=== PATIENT | male | born 1980 | race Caucasian/White ===

== ENCOUNTER 2016-12-18 09:18 | Emergency (ER) | payer OTHER ==
[2016-12-18 09:44] VITALS: BP 154/99; PULSE 78; RESP 16; TEMP 98.4; O2SAT 93
--- NOTE | 2016-12-18 10:11 | UCPHY ---
H & P Time Seen by Provider: 12/18/16 09:57 Patient Type: New HPI/ROS: This patient complains of a one-month history of cold symptoms associated with sinus headache primarily in the frontal sinus more than maxillary sinus. He also has generalized headache that is moderate worsens with cough. He has mild nasal congestion for the entire times well. Darker discharge over the past few days. Pulmonary: Constitutional, no significant fatigue. Neuro: No confusion. No numbness tingling or focal weakness. HEENT: Bilateral ear pressure. No significant sore throat. Pulmonary: No respiratory distress. No hemoptysis. 7 point ROS is otherwise negative Smoking Status: Current every day smoker Physical Exam: Physical Exam Vital signs are normal. General: No acute distress HEENT: Nose: Swollen nasal mucosa with yellow discharge. No sinus tenderness to percussion in the right frontal more than maxillary sinus. Ears: External canals and tympanic membranes are clear with no erythema or abnormal findings bilaterally. Oropharynx: No erythema or exudates. No dysphonia. No drooling or stridor. Eyes: Pupils equal and react to light. Extraocular motions are intact. Lungs: Clear to auscultation bilaterally with no rales, rhonchi or wheeze. No respiratory distress. Cardiac: Regular rate and rhythm with no murmur gallop or rub Skin: No rash or pallor. Neuro: Alert with no focal deficits noted. Initial differential diagnosis: Sinusitis, URI with cough, doubt bronchitis Constitutional: Initial Vital Signs Temperature (C) 36.9 C 12/18/16 09:41 Heart Rate 78 12/18/16 09:41 Respiratory Rate 16 12/18/16 09:41 Blood Pressure 154/99 H 12/18/16 09:41 O2 Sat (%) 93 12/18/16 09:41 O2 Delivery Mode Room Air Allergies/Adverse Reactions: Unable to Assess Allergy (Unverified 12/18/16 09:45) Home Medications: Medication Instructions Recorded Albuterol Hfa Anes Only [Proair 2 puffs IH Q4 PRN #1 mdi 12/18/16 Hfa Icu (*)] Amoxicillin Trihydrate 500 mg PO TID 10 Days 12/18/16 [Amoxicillin] Fluticasone Nasal [Flonase Nasal 2 sprays NASAL DAILY #1 mdi 12/18/16 [facility] (RX)] Medical Decision Making ED Course/Re-evaluation: Counseled the patient regarding sinusitis. Clinically, no concerning findings to suggest [employer] infection other complicating factors. Departure - Departure Disposition: Home, Routine, Self-Care Clinical Impression: Cough Acute sinusitis Qualifiers: Sinusitis location: frontal Recurrence: non-recurrent Qualified Code(s): J01.10 - Acute frontal sinusitis, unspecified Condition: Good Instructions: How to Stop Smoking (ED), Sinusitis (ED) Additional Instructions: Diagnosis: 1. Acute sinusitis 2. Cough Plan: Quit smoking Humidifier Albuterol inhaler Zithromax antibiotic Flonase steroid nasal spray Ibuprofen-600 mg per 6 hours Tylenol 1000 mg 4 hours while awake in addition as needed Return for any significant worsening despite the treatment plan. Referrals: NONE *PRIMARY CARE P,. [Primary Care Provider] - As per Instructions Prescriptions: Albuterol Hfa Anes Only [Proair Hfa Icu (*)] 2 puffs IH Q4 PRN #1 mdi PRN Reason: Wheezing Amoxicillin Trihydrate [Amoxicillin] 500 mg PO TID 10 Days Fluticasone Nasal [Flonase Nasal [facility] (RX)] 2 sprays NASAL DAILY #1 mdi - PQRS PQRS Measurement: NA
== END 2016-12-18 10:35 | disposition home or self-care (01) ==
LOC: CED 09:18
DX: J01.10 Acute frontal sinusitis, unspecified (principal); R05 Cough; F17.200 Nicotine dependence, unspecified, uncomplicated
CPT/HCPCS: 99203-PO; G0463-PO

== ENCOUNTER 2018-03-20 15:04 | Emergency (ER) | payer OTHER ==
--- NOTE | 2018-03-20 16:13 | EDPHY ---
H & P Stated Complaint: swelling in legs Time Seen by Provider: 03/20/18 15:36 HPI/ROS: CHIEF COMPLAINT: Swelling in the legs HISTORY OF PRESENT ILLNESS: 38-year-old male reports that about 2 weeks ago he dropped a heavy 40 lb window onto his left foot and lower rios. Initially had pain and swelling which resolved with ice. Over the last week and a half the patient has noticed that the foot and ankle is swollen by the end of the day. He is also noticing some swelling on his right foot which was not injured. Patient also reports swelling on the casts and shins left greater than right. Swelling is better in the mornings but develops pitting edema by the end of the day. He has noticed some mild shortness of breath over the last several days. Denies any chest pain. Patient reports he has not seen a physician in many years. He has no known history of hypertension, high cholesterol, diabetes, kidney problems, or liver injury. Patient is a daily drinker, states he has at least 90 lb overweight, and smokes. REVIEW OF SYSTEMS: Aside from elements discussed in the HPI, a comprehensive 10-point review of systems was reviewed and is negative. Patient initially presented to the [facility] Emergency Department requesting an urgent care referral. He went to [facility] where he had an x-ray obtained of his left foot which was negative for fracture. He was then referred back to the [facility] for further evaluation regarding his leg swelling, especially in light of the left greater than right swelling. PAST MEDICAL HISTORY: Chronic back pain with disc herniations. No history of DVTs or PEs. Family history of coronary artery disease in the 60s. SOCIAL HISTORY: Smoker. Heavy alcohol use. No history of alcohol withdrawal or alcohol withdrawal seizures. VITAL SIGNS Reviewed by me. GENERAL: Overweight, pleasant, no respiratory distress. HEENT: Atraumatic. Eyes: No icterus, no injection. Faint icterus. Mouth: moist mucous membranes. No erythema or lesions. Neck: supple with no adenopathy. LUNGS: Clear to auscultation bilaterally, no wheezes, rhonchi or rales. CARDIAC: Regular rate and rhythm, no rubs, murmurs or gallops. ABDOMEN: Soft, obese, nontender, nondistended, bowel sounds normal. BACK: No CVA tenderness. EXTREMITIES: Healing abrasion on the lower left rios. 2+ pitting edema to the knee on the left. Trace pitting edema on the right. Left ankle and foot are swollen. Her right ankle and foot have trace swelling. Good range of motion. Warm to the touch. Normal dorsalis pedis and posterior tibial pulses. NEURO: Alert and oriented, grossly nonfocal. SKIN: Warm and dry, no rash. PSYCHIATRIC: Normal mentation, no agitation. - Medical/Surgical History Hx Asthma: No Hx Chronic Respiratory Disease: No Hx Diabetes: No Hx Cardiac Disease: No Hx Renal Disease: No Hx Cirrhosis: No Hx Alcoholism: No Hx HIV/AIDS: No Hx Splenectomy or Spleen Trauma: No Other PMH: herniated discs L3 L4 L5, - Social History Smoking Status: Current every day smoker Constitutional: Initial Vital Signs Heart Rate 91 03/20/18 15:25 Respiratory Rate 16 03/20/18 15:25 Blood Pressure 170/108 H 03/20/18 15:25 O2 Sat (%) 92 03/20/18 15:25 O2 Delivery Mode Room Air Allergies/Adverse Reactions: amoxicillin Allergy (Verified 03/20/18 15:31) cefaclor [From Ceclor] Allergy (Verified 03/20/18 15:31) Home Medications: Medication Instructions Recorded Claritin 03/20/18 Medical Decision Making - Diagnostics Imaging Results: CXR: Impression: No evidence for acute cardiopulmonary abnormality. Dictated By: Juanito Varghese MD Ultrasound: Impression: No evidence of deep vein thrombosis. Findings discussed with Yulisa Petty MD 03/20/2018 at 16:47. Dictated By: John Rios MD ED Course/Re-evaluation: 38-year-old male presenting with 2 weeks of progressive lower extremity edema, left greater than right as well as some shortness of breath. Patient had ultrasound obtained which demonstrates no DVT. Due to the acuity in the emergency department the patient's labs were not immediately drawn. I re-examined the patient and discussed the ultrasound findings. At this point he reports he needs to leave the emergency department to attend to a family issue. Point of care labs including troponin and comprehensive metabolic panel were drawn. Patient did have an EKG obtained prior to leaving which demonstrates no acute ischemic changes. We will contact the patient if needed regarding urgent issues from labs. Patient does understand that he is leaving before the workup is complete and that ideally I would be able to discuss with him laboratory findings and correlate that to his physical examination and complaints. Patient's chemistries: Sodium 137, potassium 3.3, total CO2 24, chloride 103, glucose 86, calcium 9.2, BUN 8, creatinine 0.8, alk-phos 93, ALT 70, AST 113, total bili 1.9, albumin 3.7, total protein 7.0. Troponin on point of care testing: Negative. Patient was referred to follow up with the primary care physician. Differential Diagnosis: Differential diagnosis for the patient's primary complaint of leg swelling was considered including but not limited to cellulitis, hypoalbuminemia, congestive heart failure, cor pulmonale, chronic venous stasis and DVT. Departure - Departure Disposition: Home, Routine, Self-Care Condition: Good Instructions: Leg Edema (ED) Additional Instructions: Please call the emergency department at [phone] in the next hour to discuss your labs. Referrals: NONE *PRIMARY CARE P,. [Primary Care Provider] - As per Instructions Jim Barnes DO [Doctor of Osteopathy] - As per Instructions
--- NOTE | 2018-03-20 17:54 | CPEKG ---
Heart Rate: 89 RR Interval: 674 P-R Interval: 144 QRSD Interval: 82 QT Interval: 368 QTC Interval: 448 P [place]: 70 QRS [place]: 55 T Wave [place]: 24 EKG Severity - OTHERWISE NORMAL ECG - EKG Impression: SINUS TACHYCARDIA Electronically Signed By: Jag Edwards 23-Mar-2018 05:55:05
[2018-03-20 17:56] VITALS: BP 177/112
== END 2018-03-20 17:55 | disposition home or self-care (01) ==
LOC: CED 15:04
DX: M79.89 Other specified soft tissue disorders (principal); F17.200 Nicotine dependence, unspecified, uncomplicated
CPT/HCPCS: 71046-PO; 80053-PO; 84484-PO; 93971-PO

== ENCOUNTER 2018-09-07 10:05 | Inpatient (IN) | payer OTHER ==
[2018-09-07] MEDS ORDERED: ONDANSETRON DISINTEGRATING 4 MG TAB PO PRN (10:54)
[2018-09-07] MEDS ORDERED: ONDANSETRON 4 MG/2 ML VIAL IVP PRN (10:54)
[2018-09-07] MEDS ORDERED: NS 500 ML IV PRN (12:04)
[2018-09-07] MEDS ORDERED: FLUMAZENIL 0.5 MG/5 ML MDV IVP PRN (12:04)
[2018-09-07] MEDS ORDERED: MAG HYDROX/AL HYDROX/SIMETH 30 ML UDCUP PO PRN (12:04)
--- NOTE | 2018-09-07 12:11 | PDGENHP ---
History and Physical - Chief Complaint Lower extremity swelling - History of Present Illness Maury Posey is a 38 yo M with a PMHx of HTN, DM, alcohol abuse, tobacco abuse who presents to [facility] for lower extremity swelling. He reports that he has had lower extremity swelling for some time which has recently worsened. He notes swelling from feet to abdomen. He has been taking 80 mg Lasix intermittently without improvement. He notes some redness and clear drainage from his legs. He notes abdominal distention that has also recently worsened. He denies any abdominal pain or tenderness. He is a daily drinker which started >1 yr ago when his left him. He denies any nausea, vomiting, hematemesis, chest pain , palpitations. He notes a significant weight gain over the past year which he has tried to curb with diet which has not helped. He does report a chronic non- productive cough. He was evaluated for this with a CXR and TTE by his PCP which were reportedly normal. He also had lab work done which showed elevations in AST/ALT, T Bili, Alk Phos with a normal albumin and platelet count. History Information - Allergies/Home Medication List Allergies/Adverse Reactions: azithromycin [From Zithromax Z-Cam] Allergy (Verified 09/07/18 11:37) Bad Stomach Ache cefaclor [From Ceclor] Allergy (Verified 09/07/18 11:37) Unknown Home Medications: Furosemide [Lasix 80 MG (*)] 80 mg PO DAILY 09/07/18 [Last Taken 09/06/18] Herbals/Supplements -Info Only 1 ea PO DAILY 09/07/18 [Last Taken Unknown] [place]-3 Fatty Acids [Fish Oil 1000 mg (*)] 1,000 mg PO DAILY 09/07/18 [Last Taken Unknown] I have personally reviewed and updated: family history, medical history, social history, surgical history - Past Medical History diabetes type 2, hypertension - Surgical History Reports: neurological surgery - Family History Positive for: non-pertinent - Social History Smoking Status: Current every day smoker Alcohol Use: Heavy Review of Systems Review of Systems: ROS: 10pt was reviewed & negative except for what was stated in HPI & below Physical Exam Physical Exam: Temp Pulse Resp BP Pulse Ox 38.0 C 110 H 18 158/88 H 92 09/07/18 11:43 09/07/18 11:43 09/07/18 11:43 12/03/18 11:43 09/07/18 11:44 O2 (L/minute) 2 Constitutional: chronically ill appearing, uncomfortable Eyes: PERRL, anicteric sclera Ears, Nose, Mouth, Throat: dry mucous membranes Cardiovascular: regular rate and rhythym, no murmur, rub, or gallop, edema (3+ pitting edema b/l LE) Respiratory: no respiratory distress, clear to auscultation Gastrointestinal: ascites, distension, No tenderness, No guarding, No rebound Genitourinary: no bladder tenderness Skin: warm, erythema Musculoskeletal: full muscle strength Neurologic: AAOx3 Psychiatric: interacting appropriately, not encephalopathic Lab Data & Imaging Review 09/07/18 12:15 09/07/18 12:15 Assessment & Plan Assessment: Alcoholic Hepatitis - Presents with recent increase in abdominal distention, LE edema, hx of daily drinking - AST 118, ALT 53, T Bili 2.8, Albumin 3.4, INR 1.3, Platelets 155 on admission - DF 25.3, will hold off on steroids given <32 - Continue to monitor LFTs - Abd U/S pending - Consider GI consult in the AM for further management Lower Extremity Edema - Likely in setting of liver injury - Reported recent TTE WNL - Was on Lasix 80 mg qd at home - Will start on Lasix 40 mg BID, Spironolactone 25 mg qd - Monitor I/O, BMP Ascites - Abdominal distention on admission - No abdominal pain or tenderness on exam - Will order therapeutic, diagnostic paracentesis - Patient with Temp 38.0 on admission, no leukocytosis, will hold off on abx for now, if continues to be febrile, increase in leukocytosis, concerning paracentesis will start Cough - Reports chronic cough for past 10 months or so - Chronic smoker, recent URI per patient - CXR pending, reports TTE WNL recently Hypokalemia - K 3.0 on admission - Will order K replacement protocol - Continue to monitor closely given diuresis as above Alcohol Abuse - Drinks heavily on daily basis - Will start CIWA protocol - Folic Acid, Thiamine qd - Management of alcoholic hepatitis as above DM - Not currently on diabetic medications - Will order SSI HTN - Not currently on medical tx - BP slightly elevated on admission, continue to monitor, if remains elevated consider starting antihypertensives as IP Tobacco Abuse - Nicotine patch ordered FEN: Regular diet, IVF PRN CODE: FULL DVT PPx: Lovenox Dispo: Admit to Medicine, pending clinical course
[2018-09-07 12:29] LABS: PLATELET COUNT 155 10^3/uL (150-400)
[2018-09-07 12:34] LABS: INR 1.36 (0.83-1.16); PROTIME(PATIENT) 16.9 SEC (12.0-15.0)
[2018-09-07] MEDS: ACETAMINOPHEN 325 MG TAB PO PRN ×2 (12:37→20:21)
[2018-09-07] MEDS: oxyCODONE IR 5 MG TAB PO PRN (12:37)
--- NOTE | 2018-09-07 14:04 | PDMN ---
Medical Necessity [place] [facility] [place] liver disease complications : alcoholic hepatitis with elevated LFT's, bili, hypokalemia , hypoxemia- O2 88% RA, - 92% 2L., increased abdominal distention, LE edema, ascites, cough, PMHx DM, HTN, anticipate > 2 MN ongoing med nec care, further monitoring and eval- CIWA protocol started,
[2018-09-07] MEDS ORDERED: PROTOCOL POTASSIUM 1 DOSE MISC PRN (14:24)
[2018-09-07] MEDS ORDERED: POTASSIUM CL 10 MEQ TAB PO ONE ×2 (14:43→19:53)
--- NOTE | 2018-09-07 14:53 | ASMTCMCOM ---
CM Note CM Note Notes: Chart reviewed. 38 year old male admitted with elevated liver enzymes and SOB. He has history significant for heavy use of alcohol and is a current every day smoker. CM to follow for needs. Plan: TBD Date Signed: 09/07/2018 02:53 PM Electronically Signed By:Marly He RN
[2018-09-07] MEDS: FUROSEMIDE 40 MG/4 ML VIAL IVP SCH (14:54)
[2018-09-07] MEDS ORDERED: LIDOCAINE 1% 300 MG/30 ML SDV ONE (15:35)
[2018-09-07] MEDS: hydrALAZINE 20 MG/ML VIAL IVP PRN (15:45)
[2018-09-07] MEDS: LORazepam 2 MG/ML INJ IVP PRN ×2 (15:45→22:51)
--- NOTE | 2018-09-07 16:33 | WOCRNPDOC ---
WOCRN Advanced Assessment Note - Skin Integrity Problem, Advanced Assess Bilateral Lower Leg Dressing Type: Open to Air Exudate Amount: Moderate Exudate Characteristic(s): Serous Heather Wound Tissue: Erythema, Swollen, Painful/Tender Heather Wound Swelling: Severe Wound Bed Constitution: Loose Slough Site Measurement - Head-to-Toe Length X Width X Depth (cm): Right anterior lower lex3.5x0.1, Left anterior lower lex1.5x0.1 Extremity Temperature: Warm Skin Integrity Problem Comment: Patient in chair with dripping areas of serous fluid from bilateral anterior lower leg wounds. Wound are covered with yellow skin at this time. Severely swollen and erythematic lower legs. Non pitting edema. Pulses not palpable, likely due to extensive swelling. Advised patient keep legs elevated as much as possible. Difficult to tell if patient has any hemosiderin staining as the erythema is so prevelent. Asked SOFÍA Bonner to clean legs with foaming cleanser and to remove the layer of skin. Will initiate antimicrobial gel on the wounds that will be open after the removal of the tissue, along with mepilex transfer to move fluid onto ABD's. Wound care will follow.
[2018-09-07] MEDS ORDERED: ALBUMIN 25% 100 ML IV ONE (17:30)
[2018-09-07] MEDS ORDERED: HYDROmorphONE/DILAUDID 1 MG/ML INJ IVP ONE (18:00)
[2018-09-08] MEDS: hydrALAZINE 20 MG/ML VIAL IVP PRN ×2 (00:25→15:30)
[2018-09-08] MEDS ORDERED: POTASSIUM CL 10 MEQ TAB PO ONE ×2 (07:21→21:34)
[2018-09-08] MEDS: FOLIC ACID 1 MG TAB PO SCH (07:59)
[2018-09-08] MEDS: MULTIVITAMINS 1 EACH TAB PO SCH (08:00)
[2018-09-08] MEDS: ENOXAPARIN 40 MG/0.4 ML SYR SC SCH (08:01)
[2018-09-08] MEDS: FUROSEMIDE 40 MG/4 ML VIAL IVP SCH ×2 (08:01→15:08)
[2018-09-08] MEDS: THIAMINE HCL 500 MG in NS 100 ML IV SCH (08:25)
[2018-09-08] MEDS ORDERED: SPIRONOLACTONE 25 MG TAB PO SCH (09:00)
[2018-09-08] MEDS: NICOTINE 21 MG/24 HR PATCH TD PRN (12:17)
[2018-09-08] MEDS: oxyCODONE IR 5 MG TAB PO PRN ×3 (12:23→21:45)
--- NOTE | 2018-09-08 12:36 | HOSPPROG ---
Hospitalist Progress Note Assessment/Plan: Assessment: Alcoholic liver disease with ascites - Presents with abdominal distention, LE edema, hx of daily drinking. S/P high volume paracentesis, >5L removed. DF 25.3, will hold off on steroids given <32 - Continue to monitor LFTs - Reviewed u/s today, will obtain MRCP in am for further evaluation of hepatic parenchyma - Increase Spironolactone - Cont IV Lasix, monitor I&O's, daily wts Lower Extremity Edema - likely 2/2 above - check echo - cont diuretics as above B/L LE wounds - likely related to edema - wound care Cough - chronic for past 10 months or so, suspect related to increasing ascites / diaphragmatic irritation Hypokalemia - replace per protocol Alcohol Abuse - cont CIWA, max 8 overnight - cont Folic Acid, Thiamine qd - CM consult for resource counseling Metabolic encephalopathy - waxes and wanes - send ammonia level DM - cont SSI HTN - start metoprolol Tobacco Abuse - Nicotine patch ordered FEN: Low sodium CODE: FULL DVT PPx: Lovenox Dispo: cont inpt Subjective: Pt feels ok, doesn't notice much change in his LE swelling. Voiding frequently with IV lasix. No fevers/chills. No CP or SOB. Breathing is improved. Objective: Vital Signs Temp Pulse Resp BP Pulse Ox 36.8 C 98 19 156/110 H 94 09/08/18 12:00 09/08/18 12:00 09/08/18 08:00 09/08/18 12:00 09/08/18 12:00 Microbiology 09/07/18 14:37 Gram Stain - Final Peritoneal Fluid - Aspirate Laboratory Results 09/08/18 04:32 09/08/18 04:32 09/07/18 09/08/18 09/09/18 05:59 05:59 05:59 Intake Total 1050 Balance 1050 PT 16.9 SEC (12.0-15.0) H 09/07/18 12:15 INR 1.36 (0.83-1.16) H 09/07/18 12:15 - Physical Exam Constitutional: no apparent distress Eyes: PERRL Ears, Nose, Mouth, Throat: moist mucous membranes Cardiovascular: regular rate and rhythym Respiratory: no respiratory distress, clear to auscultation Gastrointestinal: normoactive bowel sounds, soft, non-tender abdomen Skin: warm Musculoskeletal: full muscle strength, other (3+ b/l LE edema with anterior tibial wounds) Neurologic: AAOx3 Psychiatric: interacting appropriately ICD10 Worksheet Patient Problems: Problems Problem Status Onset Alcoholic liver disease Acute - ICD10 Problem Qualifiers (1) Alcoholic liver disease
--- NOTE | 2018-09-08 15:49 | ASMTCAGE ---
CAGE Do you feel you ought to Answers: Yes cut down on your drinking or drug use? Do people annoy you by Answers: No criticizing your drinking or drug use? Do you feel guilty about Answers: Yes your drinking or drug use? Date Signed: 09/08/2018 03:44 PM Electronically Signed By:Marly He RN
--- NOTE | 2018-09-08 15:50 | ASMTCMCOM ---
CM Note CM Note Notes: Patient plan of care reviewed in rounds. Horacio is a 38 year old male admitted with cirrhosis and increased LFT's with edema of lower extremities and SOB. CAGE done and resources provided. He is employed and has a home in [place]. His job is high stress and he has suffered though a breakup. Supportive cousin in [facility] but no other significant support. He is open to talking to Maria Dolores Juarez who I think would be helpful for him. CM to follow. Plan: Likely to discharge independently. Date Signed: 09/08/2018 03:49 PM Electronically Signed By:Marly He RN
[2018-09-08] MEDS: METOPROLOL TARTRATE 25 MG TAB PO SCH ×2 (16:59→21:45)
[2018-09-08] MEDS: LORazepam 2 MG/ML INJ IVP PRN ×2 (17:00→22:03)
[2018-09-09] MEDS: FOLIC ACID 1 MG TAB PO SCH (07:55)
[2018-09-09] MEDS: MULTIVITAMINS 1 EACH TAB PO SCH (07:55)
[2018-09-09] MEDS: METOPROLOL TARTRATE 25 MG TAB PO SCH ×2 (07:55→20:51)
[2018-09-09] MEDS: SPIRONOLACTONE 50 MG TAB PO SCH (07:55)
[2018-09-09] MEDS: ACETAMINOPHEN 325 MG TAB PO PRN (07:55)
[2018-09-09] MEDS: FUROSEMIDE 40 MG/4 ML VIAL IVP SCH ×2 (07:56→16:45)
[2018-09-09] MEDS: ENOXAPARIN 40 MG/0.4 ML SYR SC SCH ×2 (07:56→20:52)
[2018-09-09] MEDS ORDERED: POTASSIUM CL 10 MEQ TAB PO ONE (07:57)
[2018-09-09] MEDS: LORazepam 2 MG/ML INJ IVP PRN (08:15)
[2018-09-09] MEDS ORDERED: SPIRONOLACTONE 50 MG TAB PO SCH (09:00)
[2018-09-09] MEDS: THIAMINE HCL 500 MG in NS 100 ML IV SCH (09:30)
[2018-09-09] MEDS: NICOTINE 21 MG/24 HR PATCH TD PRN (09:35)
[2018-09-09] MEDS ORDERED: GADOBUTROL 10 ML VIAL IVP ONE (11:03)
--- NOTE | 2018-09-09 12:23 | ECHO ---
[email or web address] [address] [address] Main: [phone] Fax: Transthoracic Echocardiogram Name: JUANPABLO PITTS MR#: [id number] Study Date: 09/09/2018 Study Time: 09:57 AM Date of : 1980 Age: 38 year(s) Height: 185.4 cm (73 in.) Weight: 170.1 kg (375 lb.) BSA: 2.81 m2 Gender: Male Examination: Echo Indication: Shortness of breath Image Quality: Contrast: Requested by: Adriana Armstrong BP: 165 mmHg/77 mmHg Heart Rate: Rhythm: Normal sinus rhythm Indication: Shortness of breath Procedure Staff Tin Flipper: Ari Carl RDCS Reading Physician: Francois Lentz MD Requesting Provider: Conclusions: Normal size left ventricle. No LV hypertrophy. Normal global systolic LV function. EF is 63 %. No regional wall motion abnormality. Normal size right ventricle. The left atrium is normal in size. There is no mitral valve regurgitation. There is no significant aortic valve regurgitation. There is no significant tricuspid valve regurgitation. No pericardial effusion. Measurements: Chambers Valvular Assessment AV/MV Valvular Assessment TV/PV Normal Normal Normal Name Value Range Name Value Range Name Value Range Ao Liana (MM): 3.4 cm (2.2 cm-3.7 AV Vmax: 1.51 m/s (1 m/s-1.7 PV Vmax: 1.06 m/s (0.6 m/s-0.9 cm) m/s) m/s) IVSd (2D): 0.9 cm (0.6 cm-1.1 AV maxP mmHg ( - ) PV PGmax: 4 mmHg ( - ) cm) LVOT Vmax: 1.07 m/s (0.7 m/s-1.1 LVDd (2D): 5.4 cm (4.2 cm-5.9 m/s) cm) MV E Vmax: 1.14 m/s ( - ) LVDs (2D): 3.5 cm (2.1 cm-4 cm) LVPWd (2D): 1.1 cm (0.6 cm-1 cm) LVEF (2D): 63 (>=54 %) Continued Measurements: Chambers Valvular Assessment AV/MV Patient: JUANPABLO PITTS Study Date: 09/09/2018 Page 1 of 2 09:57 AM Name Value Name Value LADs Lon.9 cm MV E/E' Septal: 12.40 LA Area: 15.8 cm2 MV E/E' Lateral: 13.30 LA Volume: 52 ml LA Volume Index: 18.5 ml/m2 Findings: Left Ventricle: Normal size left ventricle. No LV hypertrophy. Normal global systolic LV function. EF is 63 %. No regional wall motion abnormality. Normal diastolic LV function. There is septal flattening with respirations/sleep apnea during exam.. Right Ventricle: Normal size right ventricle. No RV hypertrophy. Normal RV function. Left Atrium: The left atrium is normal in size. Right Atrium: The right atrium is normal in size. Mitral Valve: The mitral valve is normal in appearance and function. There is no mitral valve regurgitation. Aortic Valve: The aortic valve is normal in appearance. There is no significant aortic valve regurgitation. Tricuspid Valve: The tricuspid valve is normal in appearance and function. There is no significant tricuspid valve regurgitation. Pulmonic Valve: The pulmonic valve is normal in appearance and function. Aorta: The aorta is normal. Pericardium: No pericardial effusion. (No Signature Object) Patient: JUANPABLO PITTS Study Date: 09/09/2018 Page 2 of 2 09:57 AM [id number]
--- NOTE | 2018-09-09 14:50 | HOSPPROG ---
Hospitalist Progress Note Assessment/Plan: Assessment: Alcoholic liver disease with ascites - Presented with abdominal distention, LE edema, hx of daily drinking. S/P high volume paracentesis, >5L removed. DF 25 , no steroids. - Continue Lasix, Spironolactone - Low Na diet - Continue to monitor LFTs - MRI abd today without e/o mass, more c/w steatosis - monitor I&O's, daily wts Lower Extremity Edema - likely 2/2 above - echo ok - cont diuretics as above - follow lytes and renal function while diuresing B/L LE wounds - likely related to edema - wound care Cough - chronic for past 10 months or so, suspect related to increasing ascites / diaphragmatic irritation Hypokalemia - replace per protocol Alcohol Abuse - cont CIWA, max 6 overnight - cont Folic Acid, Thiamine qd - CM consult for resource counseling - d/c iv ativan, he is oversedated today Suspected THAIS - increased risk of sedation with bzds - outpt sleep study Metabolic encephalopathy - waxes and wanes, ammonia level 43 - ativan could be contributing, change to po for w/d DM - cont SSI HTN - cont metoprolol Tobacco Abuse - Nicotine patch ordered FEN: Low sodium CODE: FULL DVT PPx: Lovenox Dispo: cont inpt Subjective: Pt feels a little better, notes slight improvement in swelling of LE 's. No CP or SOB. Breathing is improved. No fevers/chills. He is somnolent during out talk, did receive 2 mg IV ativan earlier. Objective: Vital Signs Temp Pulse Resp BP Pulse Ox 37.9 C 80 14 140/75 H 93 09/09/18 07:30 09/09/18 07:55 09/09/18 07:30 09/09/18 07:55 09/09/18 07:30 Microbiology 09/07/18 14:37 Gram Stain - Final Peritoneal Fluid - Aspirate Laboratory Results 09/08/18 04:32 09/09/18 04:54 09/08/18 09/09/18 09/10/18 05:59 05:59 05:59 Intake Total 1050 1200 Output Total 4500 Balance 1050 -3300 PT 16.9 SEC (12.0-15.0) H 09/07/18 12:15 INR 1.36 (0.83-1.16) H 09/07/18 12:15 - Physical Exam Constitutional: no apparent distress, obese Eyes: PERRL Ears, Nose, Mouth, Throat: moist mucous membranes Cardiovascular: regular rate and rhythym Respiratory: no respiratory distress, reduced air movement Gastrointestinal: normoactive bowel sounds, soft, non-tender abdomen Skin: warm Musculoskeletal: full muscle strength, other (3+ b/l LE edema with b/l anterior tibial ulcers, slight improvement in edema today) Neurologic: AAOx3 Psychiatric: interacting appropriately ICD10 Worksheet Patient Problems: Problems Problem Status Onset Alcoholic liver disease Acute - ICD10 Problem Qualifiers (1) Alcoholic liver disease
[2018-09-09] MEDS: oxyCODONE IR 5 MG TAB PO PRN ×2 (16:49→21:09)
--- NOTE | 2018-09-09 17:08 | ASMTCMCOM ---
CM Note CM Note Notes: Chart reviewed. Met with patient to offer support and help him plan for follow up with resources for his discharge. He states he has 12 weeks he can take off of work. His job is very stressful and at times encouraged his alcohol consumption. We discussed how maybe talking with a therapist may help him iidentify triggers that contribute to his excessive alcohol use. He verbalized that he is hopeful to start caring for himself. Plan: Home with outpatient support. Date Signed: 09/09/2018 05:07 PM Electronically Signed By:Marly He RN
[2018-09-09] MEDS: LORazepam 1 MG TAB PO PRN (21:09)
[2018-09-10] MEDS: oxyCODONE IR 5 MG TAB PO PRN ×4 (05:01→21:01)
[2018-09-10] MEDS: METOPROLOL TARTRATE 25 MG TAB PO SCH ×2 (07:49→21:01)
[2018-09-10] MEDS: SPIRONOLACTONE 50 MG TAB PO SCH (07:50)
[2018-09-10] MEDS: FUROSEMIDE 40 MG/4 ML VIAL IVP SCH ×2 (07:50→15:37)
[2018-09-10] MEDS: FOLIC ACID 1 MG TAB PO SCH (07:50)
[2018-09-10] MEDS: MULTIVITAMINS 1 EACH TAB PO SCH (07:50)
[2018-09-10] MEDS: ENOXAPARIN 40 MG/0.4 ML SYR SC SCH ×2 (07:51→21:02)
[2018-09-10] MEDS: NICOTINE 21 MG/24 HR PATCH TD PRN (07:54)
[2018-09-10] MEDS: THIAMINE HCL 500 MG in NS 100 ML IV SCH (10:14)
[2018-09-10] MEDS ORDERED: POTASSIUM CL 10 MEQ TAB PO ONE ×2 (11:48→19:56)
--- NOTE | 2018-09-10 12:53 | HOSPPROG ---
Hospitalist Progress Note Assessment/Plan: Assessment: Alcoholic liver disease with ascites - Presented with abdominal distention, LE edema, hx of daily drinking. S/P high volume paracentesis, >5L removed. SAAG c /w portal hypertension, with splenomegaly. MRI abd without e/o mass, more c/w steatosis, possible cirrhosis. DF 25, no steroids. Discussed with GI, no liver biopsy indicated. He agrees with current tx. - Continue IV Lasix, po Spironolactone - Low Na diet - Continue to monitor LFTs - send hepatitis w/u for completeness - monitor I&O's, daily wts - outpt f/u with GI Lower Extremity Edema - likely 2/2 above plus venous stasis. Echo ok, bnp nl. - cont diuretics as above - follow lytes and renal function while diuresing B/L LE wounds - likely related to edema - requested wound care place unna boots - outpt f/u with Dr. Powers, who he follows with Cough - chronic x10 months, suspect 2/2 increasing ascites / diaphragmatic irritation Hypokalemia - replace per protocol Alcohol Abuse - CIWA down to 1, max 2 overnight - cont Folic Acid, Thiamine qd - CM consult for resource counseling - d/c ativan Mild hypoxemia - 88% ra, suspect 2/2 THAIS plus OHS - needs outpt sleep study Metabolic encephalopathy - resolved DM - cont SSI HTN - cont metoprolol Tobacco Abuse - Nicotine patch ordered FEN: Low sodium CODE: FULL DVT PPx: Lovenox Dispo: cont inpt Subjective: Pt feels better, breathing improved. Still with significant LE edema. No CP or SOB. Mentation improved. No more w/d symptoms. Objective: Vital Signs Temp Pulse Resp BP Pulse Ox 37.4 C 80 18 102/76 88 L 09/10/18 11:19 09/10/18 11:19 09/10/18 11:19 09/10/18 11:19 09/10/18 11:19 Microbiology 09/07/18 14:37 Gram Stain - Final Peritoneal Fluid - Aspirate Body Fluid Culture - Final Laboratory Results 09/08/18 04:32 09/10/18 04:46 09/09/18 09/10/18 09/11/18 05:59 05:59 05:59 Intake Total 1200 200 Output Total 4500 Balance -3300 200 PT 16.9 SEC (12.0-15.0) H 09/07/18 12:15 INR 1.36 (0.83-1.16) H 09/07/18 12:15 - Physical Exam Constitutional: no apparent distress, obese Eyes: PERRL Ears, Nose, Mouth, Throat: moist mucous membranes Cardiovascular: regular rate and rhythym Respiratory: no respiratory distress, clear to auscultation, reduced air movement Gastrointestinal: normoactive bowel sounds, soft, non-tender abdomen Skin: warm Musculoskeletal: full muscle strength, other (b/l LE brawny edema with tissue texture changes and oozing anterior tibial wounds) Neurologic: AAOx3 Psychiatric: interacting appropriately ICD10 Worksheet Patient Problems: Problems Problem Status Onset Alcoholic liver disease Acute - ICD10 Problem Qualifiers (1) Alcoholic liver disease
[2018-09-10 13:57] LABS: HEPATITIS B SURFACE ANTIGEN NEGATIVE (NEGATIVE)
[2018-09-10 14:20] LABS: HEPATITIS A ANTIBODY TOTAL POSITIVE (NEGATIVE); HEPATITIS B CORE AB TOTAL NEGATIVE (NEGATIVE); HEPATITIS C ANTIBODY TOTAL NEGATIVE (NEGATIVE)
[2018-09-10 15:07] LABS: HEPATITIS A ANTIBODY IGM (BCH) NEGATIVE (NEGATIVE)
[2018-09-10] MEDS: LORazepam 1 MG TAB PO PRN (21:02)
[2018-09-11] MEDS: BENZONATATE 100 MG CAP PO PRN (00:58)
[2018-09-11] MEDS: NICOTINE 21 MG/24 HR PATCH TD PRN (09:48)
[2018-09-11] MEDS: FUROSEMIDE 40 MG/4 ML VIAL IVP SCH ×2 (09:48→15:44)
[2018-09-11] MEDS: ENOXAPARIN 40 MG/0.4 ML SYR SC SCH ×2 (09:48→22:11)
[2018-09-11] MEDS: THIAMINE HCL 100 MG TAB PO SCH (09:48)
[2018-09-11] MEDS: FOLIC ACID 1 MG TAB PO SCH (09:48)
[2018-09-11] MEDS: SPIRONOLACTONE 50 MG TAB PO SCH (09:48)
[2018-09-11] MEDS: METOPROLOL TARTRATE 25 MG TAB PO SCH ×2 (09:48→22:11)
[2018-09-11] MEDS: MULTIVITAMINS 1 EACH TAB PO SCH (09:48)
[2018-09-11] MEDS ORDERED: POTASSIUM CL 10 MEQ TAB PO ONE (10:03)
--- NOTE | 2018-09-11 12:13 | WOCRNPDOC ---
WOCRN Advanced Assessment Note - Skin Integrity Problem, Advanced Assess Bilateral Lower Leg Dressing Type: Mepilex Transfer, Other Other Dressing Type: netting Dressing Description: Intact, Shadowed Closure Description: Not Approximated Exudate Amount: Minimal Exudate Color: Yellow Exudate Characteristic(s): Serous Integumentary Issue Intervention: Dressing Changed, Silver Gel Applied, Mechanical Debridement Heather Wound Tissue: Blanching, Erythema, Swollen, Xerotic Heather Wound Swelling: Moderate Wound Bed Color: Yellow Wound Bed Constitution: Mixed Loose & Adhered Slough/Eschar Wound Edges: Attached, Well Defined Site Odor: Slight Site Measurement - Head-to-Toe Length X Width X Depth (cm): Right anterior lex4.5x0.1. Left anterior le.5x2x0.1 Skin Integrity Problem Comment: Patient laying in bed. Dressing removed. Patient reports legs are much less swollen than they were upon admission to the hospital, still with 3+ pitting edema, good cap refill. Reminded patient that in his current position, his legs are not elevated. Suggested pillows to help maintain elevation. Patient in agreement. Returned after patient showered. Atrac -Tain cream applied to bilateral lower legs except for wound beds and in between toes. Wound beds filled with yellow slough. Suggested that in patient's daily shower, he use a clean washcloth to help remove this layer. Silvasorb gel applied to wound beds, covered with Optilock dressing, and secured with medipore tape. Spandagrip size F stockings applied. Patient questions answered. Wound care will continue to round.
--- NOTE | 2018-09-11 15:36 | HOSPPROG ---
Hospitalist Progress Note Assessment/Plan: Assessment: Alcoholic liver disease with ascites - Presented with abdominal distention, LE edema, hx of heavy etoh, AST>ALT. S/P high volume paracentesis, >5L removed. SAAG c/w portal hypertension, with splenomegaly. MRI abd without e/o mass, more c/w steatosis, possible cirrhosis. DF 25, no steroids. Discussed with GI , no liver biopsy indicated. He agrees with current tx. - Continue IV Lasix, po Spironolactone - Low Na diet - Continue to monitor LFTs - hepatitis B,C neg, has had prior hep A exposure, but IgM neg - cont to monitor I&O's, daily wts - outpt f/u with GI - consider rpt u/s in am to r/o recurrent ascites Lower Extremity Edema / anasarca - likely 2/2 above plus venous stasis. Echo ok , bnp nl. Diuresed >10 kg - cont diuretics as above - follow lytes and renal function while diuresing - compression stockings placed B/L LE wounds - likely related to edema, chronic venous stasis - wound care following - outpt f/u with Dr. Powers, who he follows with Cough - chronic x10 months, suspect 2/2 increasing ascites / diaphragmatic irritation Hypokalemia - replace per protocol Alcohol Abuse - CIWA down to 1, max 2 overnight - cont Folic Acid, Thiamine qd - CM consult for resource counseling - d/c ativan Mild hypoxemia - 88% ra, suspect 2/2 THAIS plus OHS - needs outpt sleep study Metabolic encephalopathy - resolved DM - cont SSI HTN - cont metoprolol Tobacco Abuse - Nicotine patch ordered FEN: Low sodium CODE: FULL DVT PPx: Lovenox Dispo: cont inpt, suspect he'll be ready to d/c on po diuretics in 1-2 days Subjective: Pt feels better. LE swelling is better, but still with pitting edema in his thighs. [place] a little SOB last night, but ok now. No CP. No fevers. Objective: Vital Signs Temp Pulse Resp BP Pulse Ox 36.9 C 74 16 140/77 H 91 L 09/11/18 11:51 09/11/18 11:51 09/11/18 11:51 09/11/18 11:51 09/11/18 11:51 Microbiology 09/11/18 12:30 Respiratory Panel (PCR) - Final Nasal, Sinus - Swab No Organism Detected By Pcr 09/07/18 14:37 Gram Stain - Final Peritoneal Fluid - Aspirate Body Fluid Culture - Final Laboratory Results 09/08/18 04:32 09/11/18 04:40 09/10/18 09/11/18 09/12/18 05:59 05:59 05:59 Intake Total 200 3550 250 Balance 200 3550 250 PT 16.9 SEC (12.0-15.0) H 09/07/18 12:15 INR 1.36 (0.83-1.16) H 09/07/18 12:15 - Physical Exam Constitutional: no apparent distress, obese Eyes: PERRL Ears, Nose, Mouth, Throat: moist mucous membranes Cardiovascular: regular rate and rhythym, no murmur, rub, or gallop Respiratory: no respiratory distress, clear to auscultation, reduced air movement Gastrointestinal: normoactive bowel sounds, soft, non-tender abdomen Skin: warm Musculoskeletal: full muscle strength, other (2+ b/l LE pitting edema with anterior tibial wounds, now dressed) Neurologic: AAOx3 Psychiatric: interacting appropriately ICD10 Worksheet Patient Problems: Problems Problem Status Onset Alcoholic liver disease Acute - ICD10 Problem Qualifiers (1) Alcoholic liver disease
[2018-09-12] MEDS: BENZONATATE 100 MG CAP PO PRN (05:32)
--- NOTE | 2018-09-12 09:06 | HOSPPROG ---
Hospitalist Progress Note Assessment/Plan: Alcoholic liver disease with ascites - Presented with abdominal distention, LE edema, hx of heavy etoh, AST>ALT. S/P high volume paracentesis, >5L removed. SAAG c/w portal hypertension, with splenomegaly. MRI abd without e/o mass, more c/w steatosis, possible cirrhosis. DF 25, no steroids. Discussed with GI , no liver biopsy indicated. Pt has an appt with CANDICE Tena on 09/24 to establish care. - change to PO lasix, on po Spironolactone - hepatitis B,C neg, has had prior hep A exposure, but IgM neg. Hep B vaccines started today - cont to monitor I&O's, daily wts (reminded him to do at home) Lower Extremity Edema / anasarca - likely 2/2 above plus venous stasis. Echo ok , bnp nl. Diuresed >10 kg - cont diuretics as above - compression stockings placed B/L LE wounds - likely related to edema, chronic venous stasis - wound care following - outpt f/u with Dr. Powers, who he follows with Cough - chronic x10 months, suspect 2/2 increasing ascites / diaphragmatic irritation Hypokalemia - resolved Alcohol Abuse - cont Folic Acid, Thiamine qd - CM consult for resource counseling - d/c ativan Mild hypoxemia - 88% ra, suspect 2/2 THAIS plus OHS - needs outpt sleep study Metabolic encephalopathy - resolved DM - cont SSI HTN - cont metoprolol Tobacco Abuse - Nicotine patch ordered PCP Dr Mims at [facility] FULL CODE DVT prophy: Lovenox Dispo: likely dc today Subjective: Plan to discharge home today pending US results. Objective: Vital Signs Temp Pulse Resp BP Pulse Ox 99.2 F 79 16 124/74 H 94 09/12/18 04:00 09/12/18 04:00 09/12/18 04:00 09/12/18 04:00 09/12/18 04:00 Microbiology 09/11/18 12:30 Respiratory Panel (PCR) - Final Nasal, Sinus - Swab No Organism Detected By Pcr Laboratory Results 09/08/18 04:32 09/12/18 04:58 09/10/18 09/11/18 09/12/18 11:59 11:59 11:59 Intake Total 200 3800 1550 Balance 200 3800 1550 PT 16.9 SEC (12.0-15.0) H 09/07/18 12:15 INR 1.36 (0.83-1.16) H 09/07/18 12:15 - Pending Discharge Pending Discharge Within 24 Hours: Yes Pending Discharge Date: 09/13/18 Pending Discharge Time: 11:00 - Physical Exam Constitutional: no apparent distress, appears nourished, not in pain Eyes: anicteric sclera Ears, Nose, Mouth, Throat: moist mucous membranes Cardiovascular: regular rate and rhythym, no murmur, rub, or gallop Respiratory: no respiratory distress, no rales or rhonchi, clear to auscultation Gastrointestinal: normoactive bowel sounds, soft, non-tender abdomen, No ascites , No aguirre's sign, No guarding, No rebound, No distension Psychiatric: interacting appropriately, not anxious, not encephalopathic, thought process linear ICD10 Worksheet Patient Problems: Problems Problem Status Onset Alcoholic liver disease Acute
[2018-09-12] MEDS ORDERED: POTASSIUM CL 10 MEQ TAB PO ONE (09:08)
[2018-09-12 09:33] VITALS: BP 139/93
[2018-09-12] MEDS: ENOXAPARIN 40 MG/0.4 ML SYR SC SCH (09:36)
[2018-09-12] MEDS: NICOTINE 21 MG/24 HR PATCH TD PRN (09:36)
[2018-09-12] MEDS: FUROSEMIDE 40 MG/4 ML VIAL IVP SCH (09:37)
[2018-09-12] MEDS: MULTIVITAMINS 1 EACH TAB PO SCH (09:37)
[2018-09-12] MEDS: SPIRONOLACTONE 50 MG TAB PO SCH (09:37)
[2018-09-12] MEDS: THIAMINE HCL 100 MG TAB PO SCH (09:37)
[2018-09-12] MEDS: METOPROLOL TARTRATE 25 MG TAB PO SCH (09:38)
[2018-09-12] MEDS: FOLIC ACID 1 MG TAB PO SCH (09:38)
[2018-09-12] MEDS ORDERED: BISACODYL 10 MG SUPP PR PRN (10:21)
[2018-09-12] MEDS ORDERED: LACTULOSE 20 GM/30 ML UDCUP PO PRN (10:21)
[2018-09-12] MEDS ORDERED: POLYETHYLENE GLYCOL 3350 17 GM PKT PO SCH (10:30)
[2018-09-12] MEDS ORDERED: MAGNESIUM HYDROXIDE 30 ML UDCUP PO SCH (10:30)
--- NOTE | 2018-09-12 12:38 | ASMTLACE ---
VIDHIE Length of stay for Answers: 4-6 days current admission Acuity / Level of Answers: Yes Care: Did the patient have an inpatient admission? Comorbidities - select Answers: Diabetes (uncontrolled or all that apply controlled) Other Notes: HTN # of Emergency department Answers: 1-2 visits in the last 6 months Social determinants Answers: History of substance abuse (ETOH, street drugs, prescription drugs, etc.) Score: 13 Date Signed: 09/12/2018 12:37 PM Electronically Signed By:Marly He RN
--- NOTE | 2018-09-12 12:55 | ASMTDCNOTE ---
Case Management Discharge Discharge Order Complete? Answers: Yes Patient to Obtain Answers: Independently Medications Transportation Arranged Answers: Family/Friends Discharge Comments Notes: Medically cleared for discharge to home. He has f/u scheduled and has resources for ETOH. Date Signed: 09/12/2018 12:54 PM Electronically Signed By:Marly He RN
[2018-09-12] MEDS ORDERED: HEPATITIS B VIRUS VACCINE-PF 20 MCG/ML INJ IM ONE (13:26)
--- NOTE | 2018-09-13 21:07 | GDS ---
SERVICE: [facility] Hospitalist. CONSULTS: Wound care for bilateral lower extremity wounds. PROCEDURES: 1. Chest x-ray on admission, which showed enlarged cardiac silhouette with prominent pulmonary vascu lature. 2. Paracentesis. Ultrasound on admission showed a large pocket of ascites in the right upper quadra nt. IR performed a paracentesis, which removed 5100 cc of straw-colored ascites. 3. Post paracentesis abdominal ultrasound which showed hepatomegaly, splenomegaly, diffusely enlarge d heterogeneous liver up to 23 cm. Small amount of ascites in the right upper abdomen. Echocardiogr am showed normal LV function. No LV hypertrophy. EF of 63%. Normal diastolic function. Septal fla ttening with respirations. Normal RV. No RV hypertrophy. Normal RV function. Normal left atrium, normal right atrium, normal mitral valve, normal aortic valve, normal tricuspid valve, normal pulmoni c valve, normal aorta. No pericardial effusion. 4. Abdominal MRI showed hepatosplenomegaly, hepatic steatosis, but noted suboptimal study secondary to his size and breathing artifact. 5. Abdominal ultrasound on day of discharge, which showed minimal ascites. HISTORY AND PHYSICAL: Please see previously dictated note by Dr. Maier. ADMISSION DIAGNOSES: Alcoholic hepatitis, lower extremity edema, significant ascites with a low-grad e temperature on admission but no leukocytosis, chronic cough, hypokalemia, alcohol abuse, hypertensi on, tobacco abuse. DISCHARGE DIAGNOSES: Alcoholic hepatitis, lower extremity edema, improved; bilateral lower extremity wound secondary to chronic venous stasis, improved. significant ascites with a low-grade temperatur e on admission but no leukocytosis, chronic cough, improved; hypokalemia, resolved; alcohol abuse, hy pertension, tobacco abuse, mild hypoxemia, pending outpatient evaluation. HOSPITAL COURSE: The patient was admitted to the hospital because of significant lower extremity althea ma, worsening abdominal distention, and abnormal liver function tests. He does admit to daily heavy alcohol abuse, and liver enzyme patterns were consistent with alcoholic hepatitis. He was not starte d on steroids at admission as his was 25.3. He did have a paracentesis as described above , and was noted to have a low-grade temperature at admission, but no leukocytosis, so antibiotics wer e not started. Wound Care was asked to assist in his care because of lower extremity edema and lower extremity wounds. Hypokalemia was replaced per protocol. He was started on a CIWA protocol, folic acid and vitamin but did not show any significant signs of withdrawal throughout his stay. Hypertens ion medications were restarted at admission. Over the course of his stay, he continued with IV diure sis and noted to lose over 20 pounds during the course of his stay. He remained essentially afebrile with just a slight temperature of 100.8 noted on 09/10. He did intermittently require oxygen and ce rtainly should have an outpatient sleep evaluation to check for obstructive sleep apnea given his siz e. It was discussed with him multiple times the need for abstinence from alcohol, especially given h is MRI results, and he was very open to this. He declined any outpatient referrals at this time, but says he will follow up with his primary care provider to discuss if he changes his mind. On the day of discharge, he was tolerating a diet, showed no signs of acute alcohol withdrawal, no reaccumulati on of ascitic fluid, his vital signs were stable, and he felt comfortable with discharge to home. DISCHARGE MEDICATIONS: He should continue with folic acid, thiamine, and multivitamin [id number] er daily. He was given a prescription for Lasix 40 mg tablets to take 1 tab twice a day. He was giv en a prescription for metoprolol (Lopressor) to take 25 mg twice a day. He accepted a prescription f or nicotine patch and was strongly encouraged to continue cessation (was informed of [place] [employer] [facility] [facility] as an additional resource). He was given a prescription for spironolactone to take 50 mg once a d ay. He has been advised to continue with stockings on his feet to help with any ongoing edema issues . He has been given wound care instructions for his leg by our [facility] and they are happy to see him as an outpatient if needed. He was strongly advised to quit all alcohol use as any furthe r use could be potentially life threatening given the possible cirrhosis of his liver. He was instru cted to follow up with his primary care provider, Dr. Mims, at [facility] within the next few days. Of note, his INR was 1.36. He had an elevated bilirubin of 2.3 at discharge and will need this follo wed up as an outpatient. He had negative hepatitis B surface antigen, surface antibody, so was given his 1st hepatitis B vaccination prior to discharge. He had a negative hepatitis C antibody and a po sitive hepatitis A antibody. I strongly recommend that he receive influenza vaccine and Pneumovax as an outpatient, and he can discuss this with his primary care provider at followup. He already has a n appointment with Gastroenterology scheduled for later this month and should keep that appointment. He has been instructed to check his weight daily and if at any time he has more than a few pounds sw ing in a day, he should return to his primary care provider for reevaluation. If at any time he has abdominal pain, fever, shortness of breath, chest pain, or other concerns, he can return to the emerg ency department for reevaluation. Copy requested to: CANDICE rosenberg the [employer] /[id number]/[email or web address]
== END 2018-09-12 14:25 | disposition home or self-care (01) | DRG 434 ==
LOC: F1N 11:04
PROVIDERS: ADMIT Internal Medicine; ATTEND Internal Medicine
PROC: 0W9G3ZZ Drainage of Peritoneal Cavity, Percutaneous Approach (ICD-10-PCS; principal; 2018-09-07)
DX: K70.11 Alcoholic hepatitis with ascites (principal); I87.8 Other specified disorders of veins; E87.6 Hypokalemia; I10 Essential (primary) hypertension; F10.10 Alcohol abuse, uncomplicated; R09.02 Hypoxemia; E11.9 Type 2 diabetes mellitus without complications; R05 Cough; Z72.0 Tobacco use
CPT/HCPCS: 86704-90; 86708-90; 86709-90; 97116-GP; 97161-GP; 97165-GO; 97535-GO; A9585; G0010; G0472; J0360; J1170; J1650; J1940; J2060; J3411; P9047